=== PATIENT | female | born 1970 | race American Indian/Alaskan Native ===

== ENCOUNTER 2017-03-27 07:37 | Day surgery (SDC) | payer OTHER ==
--- NOTE | 2017-03-23 15:37 | History and Physical Report ---
History of Present Illness Date of examination: 03/23/17 History of present illness: Patient has been reassessed/reevaluated. H&P has been reviewed. No interval changes. This is a 46 years old female. The patient complains of menorrhagia, metrorrhagia and abnormal periods, but denies abnormal pap smears, dysmenorrhea , dyspareunia, post-coital bleeding, pelvic pain, abnormal vaginal discharge, breast mass or lumps, depression, anxiety, urinary symptoms, chest pain, palpitations, shortness of breath, leg swelling, back pain, abdominal pain, headaches and bowel problems. The patient notes that she is sexually active. The patient reports that she has irregular menses. The patient also presents with menstrual disorder. The symptoms began weeks ago. She complains of irregular menses, mid-cycle spotting, heavy bleeding and dysmenorrhea, but denies lack of menses, clotting, history of ovarian cysts, history of thyroid disease, history of fibroids, history of PCOS , history of bleeding disorder, lightheadedness, fatigue and cramping. Patient's work up has included hysterosongram which revealed an intracavity mass Patient desires definitive treatment Vital Signs: Patient Profile: 46 Years Old Female Height: 63 inches (160.02 cm) Weight: 167 pounds BMI: 29.58 Pt. in pain? no Menstrual History: LMP - Character: irreg; heavy Current Method of Contraception: None Past History : 3 Term Births: 1 Premature Births: 0 Living Children: 2 Para: 1 Mult. Births: 1 Prev : 1 Aborta: 2 Elect. Ab: 0 Spont. Ab: 2 Ectopics: 0 # 1 Delivery date: 2001 Delivery type: SAB # 2 Delivery date: 2002 Weeks Gestation: 22 # 3 Delivery date: 08/21/2004 Delivery type: Delivery location: [facility] [place] Comments: [employer] History Operations: Appendectomy cerclage- Ileana Anesthesia Complications: negative Abnormal PAP: negative Infection History HIV Risk Eval: no Personal hx. of genital herpes: no Hx of STD: None Current Allergies: No known allergies Past Medical History: Negative Past Medical History Past Surgical History: Appendectomy cerclage- Ileana Family History Summary: General Comments - FH: No Family History of Breast Cancer No Family History of Colon Cancer No Family History of Ovarvian Cancer No Family History of DVT/PE on OCP Social History: Patient is Risk Factors: Smoked Tobacco Use: Never smoker Smokeless Tobacco Use: Never Passive smoke exposure: no Drug use: no Alcohol use: no Review of Systems General Denies fever, chills, sweats, anorexia, fatigue, weakness, malaise, weight loss and sleep disorder. Complains of menorrhagia and abnormal vaginal bleeding. Denies vaginal discharge, incontinence, dysuria, hematuria, urinary frequency, amenorrhea, pelvic pain, genital sores, decreased libido, painful periods, painful sex, urinary urgency, hot flashes, vaginal dryness, vaginal itching and vaginal odor. CV Denies chest pains, palpitations, syncope, dyspnea on exertion, orthopnea, PND and peripheral edema. Resp Denies cough, dyspnea at rest, excessive sputum, hemoptysis, wheezing and pleurisy. GI Denies nausea, vomiting, diarrhea, constipation, change in bowel habits, abdominal pain, melena, hematochezia, jaundice, gas/bloating, indigestion/ heartburn, dysphagia and odynophagia. Breast Denies left breast lump, right breast lump, nipple discharge, bloody discharge from nipple, breast pain, abnormal mammogram and breast enlargement. Psych Denies depression, anxiety, irritability and mood swings. Past History Past Medical History: other (See HPI) Past Surgical History: , Other (See HPI) Social history: , full code (See HPI) Family history: other (See HPI) Medications and Allergies Allergies Allergy/AdvReac Type Severity Reaction Status Date / Time No Known Allergies Allergy Verified 03/27/17 00:53 Home Medications Medication Instructions Recorded Confirmed Last Taken Type No Known Home Medications [No 03/20/17 03/20/17 Unknown History Reported Home Medications] Exam - Physical Exam Narrative exam: EENT: normocephalic, no lesions or deformities Skin no ulcers, xanthomas Chest: respiratory effort normal, clear to auscultation Breasts: no masses or nipple discharge CV: regular, normal S1-S2, no murmur, no rub, no gallop Abdomen: multiple surgical scar normal bowel sounds, soft, nontender, no HSM Musculoskeletal: grossly normal ROM in joints, no joint tenderness or muscle weakness Neuro: no gross anomalities Extremities: normal alignment, no joint enlargement, crepitus, masses or tenderness; normal tone and strength [employer] Exams Vulva/Vagina: normal appearance, no discharge, lesions. No evidence of cystocele or rectocele. Cervix: normal appearance, no lesions, no discharge, cerclage in place Uterus: normal position, midline, mobile Adnexae: no masses or tenderness Rectovaginal: exam defered Results - Labs CBC & Chem 7: 03/24/17 09:15 Assessment and Plan - Patient Problems (1) Pelvic mass Current Visit: Yes Status: Acute Plan to address problem: Medical and surgical treatment options discussed Patient desires definitive treatment Discussed risk of surgery including infection, bleeding and risk of perforating her uterus. Questions answered. Patient understands and desires to proceed with myosure (2) Menorrhagia Current Visit: Yes Status: Acute Qualifiers: Menorrahagia type: with irregular cycle Qualified Code(s): N92.1 - Excessive and frequent menstruation with irregular cycle Plan to address problem: Probably secondary to # 1
--- NOTE | 2017-03-24 09:31 | Anesthesia Consultation ---
Anesthesia Consult and Med Hx Date of service: 03/27/17 - Airway Anesthetic Teeth Evaluation: Good ROM Head & Neck: Adequate Mental/Hyoid Distance: Adequate Mallampati Class: Class I Intubation Access Assessment: Good - Pulmonary Exam CTA: Yes - Cardiac Exam Cardiac Exam: RRR - Pre-Operative Health Status ASA Pre-Surgery Classification: ASA2 Proposed Anesthetic Plan: General - Central Nervous System Hx Psychiatric Problems: No - Hematic Hx Anemia: Yes (Iron transfusion 02/2017) Hx Sickle Cell Disease: Yes (Trait only) - Other Systems Hx Alcohol Use: Yes (occas) - Additional Comments Anesthesia Medical History Comments: informed consent obtained
[2017-03-24 09:55] LABS: Hematocrit 39.1 % (30.3-42.9); Mean Corpuscular HGB Conc 33 % (30-34); Mean Corpuscular Volume 74 fl (79-97); Platelet Count 206 K/mm3 (140-440)
[2017-03-24 09:58] LABS: Mean Corpuscular Hemoglobin 24 pg (28-32); Red Cell Distribution Width 32.8 % (13.2-15.2)
[2017-03-24 11:09] LABS: Anisocytosis 3+; Band Neutrophils # (Manual) 0.1 K/mm3; Basophils % (Manual) 0 % (0.0-1.8); Hypochromasia 1+; Total Cells Counted 100
[2017-03-24 11:56] LABS: Eosinophils # (Auto) 0.1 K/mm3 (0.0-0.4); Eosinophils % (Auto) 1.2 % (0.0-4.3); Monocytes # (Auto) 0.5 K/mm3 (0.0-0.8); Monocytes % (Auto) 7.1 % (0.0-7.3)
[2017-03-27] MEDS ORDERED: NACL BACTERIOSTATIC INFILTRATI ONE (07:59)
[2017-03-27] MEDS ORDERED: LACTATED RINGERS 1,000 ML IV ONE (08:00)
[2017-03-27] MEDS ORDERED: ZOFRAN IV PRN (08:33)
[2017-03-27] MEDS ORDERED: DILAUDID IV PRN (08:33)
--- NOTE | 2017-03-27 08:33 | Anesthesia Day of Surgery ---
Anesthesia Day of Surgery - Day of Surgery Patient Examined: Yes Patient H&P Reviewed: Yes Patient is NPO: Yes
[2017-03-27] MEDS ORDERED: ZOFRAN ONE (09:30)
[2017-03-27] MEDS ORDERED: DECADRON ONE (09:30)
[2017-03-27] MEDS ORDERED: XYLOCAINE CARDIAC IV ONE (09:31)
[2017-03-27] MEDS ORDERED: VERSED ONE (09:32)
[2017-03-27] MEDS ORDERED: SUBLIMAZE ONE (09:32)
[2017-03-27] MEDS ORDERED: DIPRIVAN 10 MG/ML IV ONE (09:32)
[2017-03-27] MEDS ORDERED: NACL 0.9% IR ONE (09:58)
[2017-03-27] MEDS ORDERED: SILVER NITRATE TP ONE (10:09)
--- NOTE | 2017-03-27 10:29 | Operative Report ---
Operative Report Operative Report: Date of procedure: March 27 2017 Pre-operative diagnosis: Pelvic mass Intracavitary uterine mass Post-operative diagnosis: Same Procedure name(s): Operative hysteroscopy with MyoSure Surgeon: Jay Pérez MD Sign Builder Supervisor: [] Anesthesia: Gen. EBL: Minimal Complications: None Findings: Patient with Flexeril and mass from the fundus of the uterus that bilateral tubal ostia were intact and some thickened endometrium Specimen(s): Uterine mass Procedure: Patient was brought into the operating room, where general anesthesia was induced without any difficulty. Patient was placed in dorsal lithotomy position. Prep and drape in the usual sterile manner. Timeout procedure was performed. The patient's bladder was emptied with a red rubber catheter. Speculum was placed in the vagina. Tenaculum was placed at 12:00 on the cervix. The cervical os was dilated to a 19 Yemeni diameter. The hysteroscope was placed and the findings noted above. The MyoSure device was primed. The device was placed through the cervical os. The mass was then removed using the MyoSure. The mass was completely removed with no evidence of puncture on the uterine wall. All instruments were then removed. The patient was awakened in the operating room and accompanied to recovery room in good condition.
--- NOTE | 2017-03-27 10:30 | Short Stay Summary ---
Short Stay Documentation Date of service: 03/27/17 - History H&P: dictated Past Medical History: other (See HPI) Past Surgical History: , Other (See HPI) Social history: , full code (See HPI) - Allergies and Medications Current Medications: Allergies No Known Allergies Allergy (Verified 03/27/17 00:53) Home Medications Medication Instructions Recorded Confirmed Last Taken Type No Known Home Medications [No 03/20/17 03/20/17 Unknown History Reported Home Medications] Active Medications Hydromorphone HCl (Dilaudid) 0.5 mg IV Q10MIN PRN PRN Reason: Pain , Severe (7-10) Stop: 03/27/17 18:00 Ondansetron HCl (Zofran) 4 mg IV ONCE PRN PRN Reason: Nausea And Vomiting Stop: 03/27/17 18:00 - Brief post op/procedure progress note Date of procedure: 03/27/17 (seSee dictated operative note) Condition: stable - Hospital course Hospital course: Patient was admitted underwent the above him procedure without any complications. Patient will be discharged with follow-up in office in 1-2 weeks for postop check. - Disposition Condition at discharge: Good Disposition: DC-01 TO HOME OR SELFCARE - Discharge Diagnoses (1) Pelvic mass Status: Resolved (2) Menorrhagia Status: Acute Qualifiers: Menorrahagia type: with irregular cycle Qualified Code(s): N92.1 - Excessive and frequent menstruation with irregular cycle Short Stay Discharge Plan Activity: advance as tolerated Diet: regular Additional Instructions: Patient office for fever chills nausea vomiting or pain uncontrolled by pain relief or heavy vaginal bleeding Follow up with: TIESHA PRITCHETT DO [Primary Care Provider] - 7 Days Prescriptions: Ibuprofen [Motrin 800 MG tab] 800 mg PO Q6H PRN #30 tablet PRN Reason: Pain Doxycycline [Vibramycin CAP] 100 mg PO Q12HR #14 capsule
[2017-03-27] MEDS ORDERED: LACTATED RINGERS 1,000 ML ONE (11:16)
[2017-03-27 11:37] VITALS: BP 144/95
--- NOTE | 2017-03-27 14:32 | Post Anesthesia Evaluation ---
- Post Anesthesia Evaluation Patient Participated: Yes Airway Patent: Yes Stable Respiratory Function: Yes Nausea/Vomiting: No Temp > 96.8F: Yes Pain Manageable: Yes Adequeate Hydration: Yes Anesthesia Complications: No
== END 2017-03-27 12:04 | disposition home or self-care (01) ==
LOC: OR 07:37
PROVIDERS: ATTEND Obstetrics & Gynecology
DX: N85.9 Noninflammatory disorder of uterus, unspecified (principal); D57.3 Sickle-cell trait; Z98.890 Other specified postprocedural states
CPT/HCPCS: 36415; 58558; 84703; 85007; 85025; 86850; 86900; 86901; 88305; A4217; C1782; J1100; J2001; J2250; J2405; J2704; J3010; J7120